=== PATIENT | female | born 1960 | race Caucasian/White ===

== ENCOUNTER 2019-08-10 13:10 | Inpatient (IN) ==
[2019-08-10] MEDS ORDERED: TYLENOL PO PRN (15:41)
[2019-08-10] MEDS ORDERED: ZOFRAN IV PRN (15:41)
[2019-08-10] MEDS ORDERED: NS 1,000 ML IV SCH (15:45)
[2019-08-10 15:56] LABS: HEMOGLOBIN 13.1 g/dL (12.0-16.0); MCH 28.3 PG (27-31); MCV 88.6 FL (81-99); MPV 9.9 FL (7.4-10.4); RBC 4.63 XMIL (4.2-5.4); RDW 14.7 % (11.5-14.5); WBC 9.71 X1000 (4.8-10.8)
[2019-08-10] MEDS ORDERED: NORCO-10 PO PRN (16:14)
[2019-08-10 16:22] LABS: ALBUMIN 3.9 g/dL (3.5-5.0); CALCIUM 8.5 mg/dL (8.8-10.2); POTASSIUM 4.2 mmol/L (3.5-5.1); TOTAL BILIRUBIN 0.2 mg/dL (0.20-1.00); TOTAL PROTEIN 6.8 g/dL (6.3-8.3)
[2019-08-10] MEDS ORDERED: MAGNESIUM SULFATE 4 GM/S.W.I. 4 GM/100 ML IVPB IV ONE (16:46)
[2019-08-10] MEDS ORDERED: CARDIZEM IV ONE ×2 (18:08→21:05)
--- NOTE | 2019-08-10 18:11 | HISTORY AND PHYSICAL ---
PRIMARY CARE PROVIDER: Dr. Gilson Corona. CHIEF COMPLAINT: Direct admit for low magnesium level with hand cramping that is already resolved. HISTORY OF PRESENT ILLNESS: Ms Sandra Meyers is a 58-year-old female with a medical history of hormone replacement therapy, COPD, depression, and GERD who states that she has been having some issues with cramping, twitching and painful hands. Presented to her primary care provider on Saturday, was initiated on magnesium supplementation and a magnesium level was drawn. She states that the cramping actually resolved the next day, Saturday, and she has been taking the supplementation since then but was called today to tell her that she had an extremely low magnesium level and she was to be admitted for replacement of the significantly low magnesium level. She thinks she was told it was as low as 0.06 or 0.6. Currently, labs have been ordered. The magnesium still is low but it is actually at 1.0. Her symptoms have resolved. So, will be able to give her some IV magnesium and to get that improved. Otherwise, she has no other complaints. PAST MEDICAL HISTORY: 1. Hormone replacement therapy. 2. COPD. 3. Depression. 4. GERD. 5. Bilateral lower extremity red, round, circular type, flat lesions that she has had for at least two years that cause her no complications or no issues. 6. Seasonal allergies. SURGICAL HISTORY: 1. Left breast biopsy. 2. Hysterectomy. 3. Left ankle surgery. 4. Cholecystectomy. 5. Skin biopsies. 6. EGD and colonoscopy five years ago. SOCIAL HISTORY: One pack per day smoker since the age of 17. Denies alcohol or illicit drug use. She is . FAMILY HISTORY: Mother: No medical conditions. Father: Diabetes. ALLERGIES: Sulfa causes a rash. HOME MEDICATIONS: 1. Ambien 10 mg p.o. nightly. 2. Lyrica 200 mg p.o. nightly. 3. Vilanterol one puff inhaled daily. 4. Claritin one tablet p.o. twice daily. 5. Cymbalta 60 mg p.o. daily. 6. Estradiol 2 mg p.o. daily. 7. Flonase two sprays nasally daily. 8. [place] t.i.d. p.r.n. 9. Potassium chloride 20 mEq p.o. twice daily. 10. Lasix 40 mg p.o. twice daily. 11. Magnesium oxide 400 mg p.o. daily. 12. Prilosec 40 mg p.o. twice daily. 13. Topamax 50 mg p.o. t.i.d. 14. Phenergan 20 to 50 mg p.o. every six hours p.r.n. REVIEW OF SYSTEMS: Fourteen point review of systems are complete and all were negative except for those mentioned in above HPI. PHYSICAL EXAMINATION: VITAL SIGNS: Temperature 98.1 degrees, heart rate 80, respiratory rate 20, blood pressure 151/89, O2 saturation 98% on room air, 5 feet 9 inches tall, 230 pounds, BMI is 35.2. GENERAL: Ms. Sandra Meyers is a 58-year-old female. She is in no acute distress. She is able answer questions appropriately. HEENT: Normocephalic. Pupils equal, round, reactive to light. Extraocular movements intact. Mucous membranes are moist. NECK: Trachea midline. CARDIOVASCULAR: S1, S2. Regular rate and rhythm. No rubs, gallops, murmurs. No lower extremity edema. +2 dorsalis and radial pulses. Negative JVD or carotid bruits. GASTROINTESTINAL: Soft, nontender, nondistended. Positive bowel sounds x4. EXTREMITIES: Moves all extremities equally. Full range of motion. NEUROLOGIC: Alert and oriented x3. Follows commands. Sensory is intact. SKIN: Warm, dry, intact, and there is multiple, not symmetrical circular type lesions, bilateral lower extremities. They are pink in color. LABORATORY DATA: White blood cells 9000, hemoglobin 13, hematocrit 41, platelet count 271,000. Sodium 144, potassium 4.2, BUN 10, creatinine is 1.0, glucose 105, calcium 8.5, magnesium 1.0, bilirubin 0.20, AST 12, ALT 9, albumin 3.9. TSH 2.32. IMAGING: None. EKG: None but EKG has been ordered. ASSESSMENT AND PLAN: 1. Symptomatic hypomagnesemia. Was experiencing some significant hand cramping, that resolved after she was started on some magnesium supplementation on Saturday. It resolved on Saturday, but she continues to still have a low magnesium level. Will be able to give her some intravenous magnesium supplementation. Maybe she can go home tomorrow. There are no obvious cardiac complications at this time. We are still pending an electrocardiogram here. She did have an electrocardiogram on Saturday, apparently that was okay, according to her. 2. Hormone replacement therapy. We can resume that. 3. Chronic obstructive pulmonary disease, no exacerbation. 4. Depression. Resume those medications. 5. Gastroesophageal reflux disease. Continue her proton pump inhibitor. 6. Deep venous thrombosis prophylaxis with sequential compression devices. Dictated by DEIRDRE Delacruz for Torey Solomon MD cc: DEIRDRE Delacruz MD
--- NOTE | 2019-08-10 19:50 | HISTORY AND PHYSICAL ---
ADDENDUM: Patient is a 58-year-old female who presented to the hospital from her primary care's office. They note that she had a low magnesium. She has been having cramping. Currently her magnesium level is 1. We are going to admit her to the hospital, replace her magnesium and place her on telemetry and will follow. cc: Torey Solomon MD
--- NOTE | 2019-08-10 20:23 | EKG Report ---
Test Performed on : 08/10/2019 6:03:28 PM Test Reason : low magnesium Blood Pressure : / mmHG Vent. Rate : 174 BPM Atrial Rate : 187 BPM P-R Int : 000 ms QRS Dur : 088 ms QT Int : 284 ms P-R-T Axes : 000 -27 145 degrees QTc Int : 483 ms Atrial fibrillation. with rapid ventricular response. Voltage criteria for left ventricular hypertrophy Marked ST abnormality, possible lateral subendocardial injury Abnormal ECG When compared with ECG of 18-SEP-2013 15:03, Atrial fibrillation. has replaced Sinus rhythm. Vent. rate has increased BY [address] now depressed in Lateral leads T wave inversion no longer evident in Inferior leads T wave inversion now evident in Lateral leads Confirmed by Devaughn Hu MD ([id number]) on 08/28/2019 7:39:04 AM
[2019-08-10] MEDS ORDERED: LYRICA PO SCH (21:00)
[2019-08-10] MEDS ORDERED: KLOR-CON PO SCH (21:00)
[2019-08-10] MEDS ORDERED: CLARITIN-D 12 HR PO SCH (21:00)
[2019-08-10] MEDS ORDERED: TOPAMAX PO SCH (21:00)
[2019-08-10] MEDS ORDERED: AMBIEN PO SCH (21:00)
[2019-08-10] MEDS ORDERED: LASIX PO SCH (21:00)
[2019-08-10] MEDS ORDERED: CARDIZEM 125 MG/D5W 125 MG/125 ML IVPB IV SCH (21:15)
[2019-08-10] MEDS: PRILOSEC PO SCH (21:23)
[2019-08-10 22:04] LABS: CALCIUM 8.8 mg/dL (8.8-10.2); CREATININE 1.1 mg/dL (0.5-0.9); MAGNESIUM 2.5 mg/dL (1.5-2.7); POTASSIUM 4.3 mmol/L (3.5-5.1)
[2019-08-11] MEDS: PRILOSEC PO SCH ×3 (05:43→20:46)
[2019-08-11 06:11] LABS: BASO# 0.01 X1000 (0.0-0.2); BASO% 0.1 % (0.0-0.8); EOS# 0.14 X1000 (0.0-0.7); EOS% 1.6 % (0.0-10.0); HEMATOCRIT 43.2 % (37.0-47.0); LYMPH# 2.12 X1000 (1.2-3.4); LYMPH% 24.6 % (20.5-51.1); MCH 28.7 PG (27-31); MCHC 32.4 g/dL (33-37); MCV 88.5 FL (81-99); MONO# 0.51 X1000 (0.11-0.59); MONO% 5.9 % (1.7-9.3); MPV 9.9 FL (7.4-10.4); NEUT# 5.84 X1000 (1.4-6.5); NEUT% 67.8 % (42.2-75.2); PLT 287 X1000 (130-400); RBC 4.88 XMIL (4.2-5.4); RDW 14.9 % (11.5-14.5); WBC 8.62 X1000 (4.8-10.8)
[2019-08-11 06:28] LABS: AGAP 15; ALB/GLOB RATIO 1.2; ALBUMIN 3.8 g/dL (3.5-5.0); ALKALINE PHOSPHATASE 126 U/L (32-104); BUN 14 mg/dL (8-22); CALCIUM 8.5 mg/dL (8.8-10.2); CHLORIDE 105 mmol/L (98-107); COSMO 282; CREATININE 0.9 mg/dL (0.5-0.9); ESTIMATED GFR > 60; GLUCOSE 96 mg/dL (70-104); GOT 9 U/L (10-30); GPT 8 U/L (10-36); MAGNESIUM 2.3 mg/dL (1.5-2.7); POTASSIUM 4.2 mmol/L (3.5-5.1); SODIUM 141 mmol/L (136-145); TCO2 21 mmol/L (25-35); TOTAL BILIRUBIN 0.37 mg/dL (0.20-1.00); TOTAL PROTEIN 6.9 g/dL (6.3-8.3)
--- NOTE | 2019-08-11 07:26 | EKG Report ---
Test Performed on : 08/11/2019 07:00:14 AM Test Reason : low magnesium Blood Pressure : / mmHG Vent. Rate : 074 BPM Atrial Rate : 074 BPM P-R Int : 148 ms QRS Dur : 084 ms QT Int : 392 ms P-R-T Axes : 037 -19 027 degrees QTc Int : 435 ms Normal sinus rhythm. Voltage criteria for left ventricular hypertrophy Abnormal ECG When compared with ECG of 10-AUG-2019 18:03, (Unconfirmed) Sinus rhythm. has replaced Atrial fibrillation. Vent. rate has decreased BY [address] no longer depressed in Anterolateral leads Confirmed by Gómez HIGH, P.J.M ([id number]) on 08/12/2019 7:55:46 PM
[2019-08-11] MEDS ORDERED: ANORO ELLIPTA 62.5-25 MCG INH INH SCH (07:30)
[2019-08-11] MEDS ORDERED: TYLENOL PO PRN (07:43)
[2019-08-11] MEDS ORDERED: ZOFRAN IV PRN (07:43)
[2019-08-11] MEDS: CYMBALTA PO SCH (08:31)
[2019-08-11] MEDS: KLOR-CON PO SCH ×2 (08:31→20:49)
[2019-08-11] MEDS: LASIX PO SCH ×2 (08:31→20:49)
[2019-08-11] MEDS: MAG-OX PO SCH (08:31)
[2019-08-11] MEDS: ESTRACE PO SCH (08:32)
[2019-08-11] MEDS: TOPAMAX PO SCH ×3 (08:32→20:46)
[2019-08-11] MEDS: CLARITIN-D 12 HR PO SCH ×2 (08:36→20:47)
[2019-08-11] MEDS ORDERED: FLONASE NAS SCH (09:00)
[2019-08-11] MEDS ORDERED: ESTRACE PO SCH (09:00)
[2019-08-11] MEDS ORDERED: CYMBALTA PO SCH (09:00)
[2019-08-11] MEDS ORDERED: MAG-OX PO SCH (09:00)
[2019-08-11] MEDS: FLONASE NAS SCH (10:21)
--- NOTE | 2019-08-11 12:56 | PROGRESS NOTE ---
DATE: 08/11/2019 SUBJECTIVE: This is a 58-year-old white female with medical history of hormone replacement therapy, COPD, depression, gastroesophageal reflux disease. States she has been having some issues with cramping, twitching, and painful hands. Presented to the primary care provider Saturday, initiated on magnesium supplementation. Magnesium level was drawn. She states that her cramping actually resolved the next day. Saturday, she had been taking this supplementation since then, but was called to tell her that it was extremely low, and was admitted for replacement of significantly low magnesium level. It was 0.6, I believe, currently. PAST MEDICAL HISTORY: Again reviewed. 1. Hormone replacement. 2. COPD. 3. Depression. 4. Gastroesophageal reflux disease. 5. Bilateral lower extremity round, circular-type, flat lesions that she has had for at least 2 years. It causes her no complication or issues. 6. Seasonal allergies. PAST SURGICAL HISTORY: 1. Left breast biopsy. 2. Hysterectomy. 3. Left ankle surgery. 4. Cholecystectomy. 5. Skin biopsies. 6. EGD and colonoscopy about 5 years ago. OBJECTIVE: General: She feels much better today. Vital Signs: Remains afebrile, temperature 98 degrees, pulse 83, respirations 17, blood pressure 153/86. HEENT: Pupils are equal and round. Lungs: Clear in all lung wilkinson. Cardiovascular: Regular rhythm and rate without murmur or S3. Abdomen: Soft. Skin: Warm and dry. Her magnesium is up to 2.3, so we will see how she does. She could possibly go home today. cc: Shin Cleaning MD
[2019-08-11] MEDS: NORCO-10 PO PRN (19:30)
[2019-08-11] MEDS ORDERED: LYRICA PO SCH ×2 (21:00)
[2019-08-11] MEDS ORDERED: AMBIEN PO SCH (21:00)
--- NOTE | 2019-08-11 22:02 | EKG Report ---
Test Performed on : 08/11/2019 9:22:09 PM Test Reason : hr 175 Blood Pressure : / mmHG Vent. Rate : 154 BPM Atrial Rate : 153 BPM P-R Int : 000 ms QRS Dur : 084 ms QT Int : 288 ms P-R-T Axes : 000 -26 141 degrees QTc Int : 461 ms Critical Test Result: High HR Atrial fibrillation. with rapid ventricular response. Voltage criteria for left ventricular hypertrophy ST & T wave abnormality, consider lateral ischemia Abnormal ECG When compared with ECG of 11-AUG-2019 07:00, (Unconfirmed) Atrial fibrillation. has replaced Sinus rhythm. Vent. rate has increased BY 80 BPM Non-specific change in ST segment in Lateral leads Confirmed by Gómez HIGH, P.J.M ([id number]) on 08/12/2019 7:57:35 PM
[2019-08-11] MEDS ORDERED: CARDIZEM IV ONE (22:16)
[2019-08-11] MEDS ORDERED: CARDIZEM 100 MG/NS 100 MG/100 ML IVPB IV SCH (22:30)
[2019-08-11 23:05] LABS: CALCIUM 8.6 mg/dL (8.8-10.2); CREATININE 1.3 mg/dL (0.5-0.9); POTASSIUM 4.1 mmol/L (3.5-5.1)
[2019-08-12] MEDS: PRILOSEC PO SCH (06:16)
[2019-08-12] MEDS ORDERED: ANORO ELLIPTA 62.5-25 MCG INH INH SCH (07:30)
[2019-08-12] MEDS: KLOR-CON PO SCH (08:26)
[2019-08-12] MEDS: NORCO-10 PO PRN (08:26)
[2019-08-12] MEDS: MAG-OX PO SCH (08:26)
[2019-08-12] MEDS: TOPAMAX PO SCH ×2 (08:27→15:20)
[2019-08-12] MEDS: CYMBALTA PO SCH (08:27)
[2019-08-12] MEDS: CLARITIN-D 12 HR PO SCH (08:27)
[2019-08-12] MEDS: LASIX PO SCH (08:27)
[2019-08-12] MEDS: ESTRACE PO SCH (08:28)
[2019-08-12] MEDS: FLONASE NAS SCH (08:28)
[2019-08-12 09:00] LABS: BASO# 0.03 X1000 (0.0-0.2); BASO% 0.4 % (0.0-0.8); EOS# 0.14 X1000 (0.0-0.7); EOS% 1.7 % (0.0-10.0); HEMATOCRIT 44.7 % (37.0-47.0); HEMOGLOBIN 14.2 g/dL (12.0-16.0); IMM GRAN# 0.04 X1000 (0.0-0.04); IMM GRAN% 0.5 % (0.0-0.5); LYMPH# 2.54 X1000 (1.2-3.4); MCH 28.2 PG (27-31); MCHC 31.8 g/dL (33-37); MCV 88.7 FL (81-99); MONO# 0.48 X1000 (0.11-0.59); MONO% 5.7 % (1.7-9.3); MPV 9.9 FL (7.4-10.4); NEUT# 5.23 X1000 (1.4-6.5); NEUT% 61.7 % (42.2-75.2); PLT 335 X1000 (130-400); RBC 5.04 XMIL (4.2-5.4); RDW 14.9 % (11.5-14.5); WBC 8.46 X1000 (4.8-10.8)
[2019-08-12 09:31] LABS: ALB/GLOB RATIO 1.6; CALCIUM 8.9 mg/dL (8.8-10.2); MAGNESIUM 2.1 mg/dL (1.5-2.7); POTASSIUM 4.4 mmol/L (3.5-5.1); TOTAL BILIRUBIN 0.24 mg/dL (0.20-1.00); TOTAL PROTEIN 6.5 g/dL (6.3-8.3)
--- NOTE | 2019-08-12 11:00 | EKG Report ---
Test Performed on : 08/12/2019 10:54:53 AM Test Reason : afib Blood Pressure : / mmHG Vent. Rate : 080 BPM Atrial Rate : 080 BPM P-R Int : 144 ms QRS Dur : 076 ms QT Int : 354 ms P-R-T Axes : 019 -21 013 degrees QTc Int : 408 ms Normal sinus rhythm. Voltage criteria for left ventricular hypertrophy Abnormal ECG When compared with ECG of 11-AUG-2019 21:22, (Unconfirmed) Sinus rhythm. has replaced Atrial fibrillation. Vent. rate has decreased BY 74 BPM Non-specific change in ST segment in Lateral leads T wave inversion no longer evident in Lateral leads Confirmed by Gómez HIGH, P.J.M ([id number]) on 08/12/2019 7:59:37 PM
--- NOTE | 2019-08-12 11:08 | Diag Imaging Result Doc PS360 ---
EXAM: CHEST-PORTABLE HISTORY: dyspnea TECHNIQUE: Single view COMPARISON: 08/04/2019 FINDINGS: Poor inspiratory effort. The heart is not enlarged. The vessels are not distended. There are no infiltrates. No effusion identified. IMPRESSION: Negative exam. Electronically signed by Kaushik Morin 08/12/2019 11:06 AM
[2019-08-12] MEDS ORDERED: ASPIRIN PO SCH (11:30)
[2019-08-12] MEDS ORDERED: CARDIZEM CD PO SCH (11:30)
[2019-08-12 13:08] VITALS: BP 104/72
--- NOTE | 2019-08-12 14:03 | PROGRESS NOTE ---
DATE: 08/12/2019 SUBJECTIVE: Ms. Meyers is feeling better. No further abdominal cramping. I think she has an echocardiogram due today. OBJECTIVE: Temperature 97.7 degrees, pulse 100, respirations 17, blood pressure 104/72. Pupils are equal and round. Lungs are clear in all lung wilkinson. Cardiovascular Examination: Regular rhythm and rate without murmur or S3. Urine output is 2000 mL. Chest x-ray, negative exam. Poor inspiratory effort. No sign of infiltrates. ASSESSMENT AND PLAN: She came in with hypomagnesemia and it appears that this is improving. Her magnesium is back up to 2.1 so I am hopeful we can let her go home today. She is eating. Bowels are moving good. Blood pressure appears well controlled. cc: Shin Cleaning MD
--- NOTE | 2019-08-12 14:47 | ECHO REPORT ---
ORDER DATE: 08/12/2019 INTERPRETING PHYSICIAN: Dr. Gregg Regalado. ECHOCARDIOGRAPHIC MEASUREMENTS: 1. Interventricular septum: 0.9 cm. 2. Left ventricular posterior wall: 0.9 cm. 3. Diastolic diameter: 3.9 cm. 4. Left atrium: 3.3 cm. 5. Aorta: 3.1 cm. SUMMARY OF THE 2-DIMENSIONAL IMAGIN. Aortic valve leaflets were trileaflet. 2. Tricuspid valve was normal. 3. Pulmonic valve was normal. 4. Mitral valve was normal. 5. Peak velocity across the aortic valve less than 2 m/sec. There is no aortic stenosis or regurgitation. There is mild mitral regurgitation. 6. Mild tricuspid regurgitation. Peak velocity across the tricuspid valve was 2.8 m/sec. 7. Pulmonary artery systolic pressure of 40 mmHg. 8. Normal left ventricular cavity size. Estimated ejection fraction of 60-65%. 9. There is no pericardial effusion or obvious intracardiac mass or thrombus seen. cc: Gregg Regalado MD
--- NOTE | 2019-08-12 18:25 | DISCHARGE SUMMARY ---
ADMISSION DATE: 08/10/2019 DISCHARGE DATE: 08/12/2019 PRIMARY CARE PROVIDER: Dr. Gilson Corona. HISTORY OF PRESENT ILLNESS: This is a 59-year-old female with medical history of hormone replacement therapy, COPD, depression, gastroesophageal reflux disease. She had been having some issues with cramping, and twitching especially in her hands, painful. She presented to the primary care provider on Saturday, was initiated on magnesium supplementation. Magnesium level was drawn and was actually pretty low, and when the lab came back, I think her magnesium was 0.6 and so she was told to come in to the emergency room. She was admitted and supplemented with magnesium. PAST MEDICAL HISTORY: 1. Hormone replacement. 2. COPD. 3. Depression. 4. Gastroesophageal reflux disease. 5. Bilateral lower extremity red round circular flat lesions that have been going on for least 2 years and I am not sure what these are, but apparently she has been worked up by her primary care physician. 6. Seasonal allergies. PAST SURGICAL HISTORY: 1. Left breast biopsy. 2. Hysterectomy. 3. Left ankle surgery. 4. Cholecystectomy. 5. Skin biopsies. 6. EGD and colonoscopy about 5 years ago. ADMISSION DIAGNOSIS: Symptomatic hypomagnesemia. Supplemented with magnesium and showed pretty good resolution of her symptomatology. Echocardiogram done on 08/12 and she has normal valves. Left ventricular function was normal with a normal ejection fraction. She was feeling much better and felt she could go home. DISCHARGE MEDICATIONS: She will be on aspirin 81 mg a day, Cardizem CD 120 mg a day, Cymbalta 60 mg a day, Estrace 2 mg p.o. daily, Flonase nasal spray 2 puffs each nostril daily, Lasix 40 mg p.o. daily, Birney 10s which she takes t.i.d. p.r.n., Claritin-D 12 hour release 1 b.i.d., Prilosec 20 mg b.i.d., Klor-Con 20 mEq b.i.d., Lyrica 200 mg at bedtime, Topamax 50 mg p.o. t.i.d.. She takes Anoro Ellipta 62.5-25 one puff daily and Ambien 10 mg a day. We will put her on some p.o. Mag oxide and she will just take a 400 mg once a day. cc: Shin Cleaning MD
[2019-08-12] MEDS ORDERED: PRILOSEC PO SCH (21:00)
--- NOTE | 2019-08-13 00:39 | CONSULTATION ---
DATE OF CONSULTATION: 08/12/2019 IMPRESSION: 1. Episode of atrial fibrillation, now spontaneously converted back to sinus rhythm. The patient without palpitations and unaware of atrial fibrillation. 2. Severe hypomagnesemia, probably related to medications. Patient has been on omeprazole 40 mg p.o. twice daily, probably impeding absorption of magnesium as well as Lasix 40 mg p.o. b.i.d. enhancing elimination of magnesium. 3. Chronic tendency for dependent edema, being treated with Lasix. Suspect this may be more likely related to venous insufficiency. 4. Gastroesophageal reflux disease. 5. Chronic obstructive pulmonary disease. 6. Chronic cigarette use. RECOMMENDATIONS: 1. [id number] score is 1; therefore, limited. Suggest aspirin p.o. daily given that she may have had occult episodes atrial fibrillation in the past. 2. Replete magnesium as you are doing. 3. Reduce proton pump inhibitor dose. Consideration might be given to use of Protonix plus evening use of Pepcid to try and lessen the tendency for poor absorption of magnesium. 4. Follow up echocardiography. 5. Judicious use of diuretic therapy. It would appear more likely that she has chronic venous insufficiency for which she has been taking Lasix twice daily. HISTORY: This is a 58-year-old white female with past history of COPD, gastroesophageal reflux disease, and dependent edema, was admitted with cramps in her hands and severe hypomagnesemia. While hospitalized on telemetry, she demonstrated transient atrial fibrillation with rapid ventricular rate. She was started on intravenous Cardizem, which brought rate under control. She has converted back to sinus rhythm. She was not aware of her arrhythmia. She denies any palpitations or chest pain. She has been on omeprazole 40 mg twice daily detention for gastroesophageal reflux. She also has been taking Lasix 40 mg p.o. twice daily to combat her tendency for dependently lower extremity edema. She denies any chest discomfort or shortness of breath. There is no prior history of atrial fibrillation. No palpitations. PAST MEDICAL HISTORY: 1. Chronic obstructive pulmonary disease. 2. Depression. 3. Gastroesophageal reflux disease. 4. Seasonal allergies. PAST SURGICAL HISTORY: 1. Left breast biopsy. 2. Hysterectomy. 3. Unspecified left ankle surgery. 4. Cholecystectomy. 5. Multiple skin biopsies. 6. Previous upper GI endoscopy and colonoscopy. ALLERGIES: She is allergic or intolerant to codeine and latex. MEDICATIONS PRIOR TO ADMISSION: As listed. SOCIAL HISTORY: She is . She previously worked as an animal control agent. She smokes 1 pack of cigarettes per day and has done so for approximately 40 years. She does not drink alcohol. FAMILY HISTORY: Negative for premature coronary disease. REVIEW OF SYSTEMS: Pulmonary: Noncontributory beyond history of present illness. Gastrointestinal: Noncontributory beyond history present illness. Constitutional: Noncontributory beyond history of present illness. Remainder of review of systems negative/noncontributory beyond history of present illness with 14 total systems reviewed. PHYSICAL EXAMINATION: General: This is a overweight, middle-aged female in no distress on room air. Vital signs: Blood pressure 128/75, heart rate 96, oxygen saturation 97% on room air. HEENT: Extraocular movements intact. Mucous membranes moist. Neck: Supple without jugular venous distention. There are no carotid bruits. Chest: Clear to auscultation bilaterally. Cardiac: Reveals a regular rate and rhythm without appreciable murmur or gallop. Abdomen: Soft. Bowel sounds are normal. Extremities: Without edema. Venous stasis changes are evident. Neurologic: Reveals her to be alert and fully oriented. Speech is fluent. She moves all 4 extremities equally well. Skin: Warm and dry. Psychiatric: Reveals mood to be appropriate. DATA: A 12-lead EKG dated 08/10/2019 at around 6 p.m. demonstrates atrial fibrillation with rapid ventricular rate and diffuse nonspecific ST and T-wave abnormality. Voltage criteria for left ventricular hypertrophy is demonstrated. Repeat ECG this morning demonstrates normal sinus rhythm and voltage criteria for left ventricular hypertrophy. LABORATORY DATA: Includes a white blood cell count 8.46, hematocrit 44.7, hemoglobin 14.2, platelet count 335,000. Sodium 138, potassium 4.4, chloride 104, carbon dioxide 20, BUN 18, creatinine 1.0. Glucose 108. Initial CPK 56 with a followup CPK at 36 and 32. Initial troponin less than 0.01 with followup troponin's of less than 0.01 and less than 0.01. TSH 2.32. Magnesium on admission 1.0, magnesium today 2.1 in. cc: Ilya Collins MD
[2019-08-13] MEDS ORDERED: LASIX PO SCH (09:00)
== END 2019-08-12 18:02 | disposition home or self-care (01) | DRG 641 ==
LOC: SUATTDRO 13:10 → P.DIRADM 13:10 → P.MEDSURG 13:51 → 2N 21:47
PROVIDERS: ATTEND Emergency Medicine

== ENCOUNTER 2019-08-17 07:25 | Observation (INO) ==
--- NOTE | 2019-08-17 08:08 | Diag Imaging Result Doc PS360 ---
EXAM: CHEST-1 VIEW 08/17/2019 HISTORY: chest pain TECHNIQUE: AP upright portable at 0801 COMMENT: The inspiration is slightly suboptimal. There is platelike atelectasis in the left lower lobe which was not evident on 08/12/2019. IMPRESSION: Left lower lobe atelectasis. Electronically signed by Domingo Lagunas 08/17/2019 8:05 AM
--- NOTE | 2019-08-17 08:28 | EKG Report ---
Test Performed on : 08/17/2019 07:31:02 AM Test Reason : cp Blood Pressure : / mmHG Vent. Rate : 089 BPM Atrial Rate : 089 BPM P-R Int : 152 ms QRS Dur : 082 ms QT Int : 346 ms P-R-T Axes : 035 -17 049 degrees QTc Int : 420 ms Normal sinus rhythm. Voltage criteria for left ventricular hypertrophy Possible Lateral infarct , age undetermined Abnormal ECG When compared with ECG of 12-AUG-2019 10:54, No significant change was found Unconfirmed Result
[2019-08-17 08:36] LABS: BASO# 0.02 X1000 (0.0-0.2); BASO% 0.2 % (0.0-0.8); EOS# 0.15 X1000 (0.0-0.7); EOS% 1.7 % (0.0-10.0); HEMATOCRIT 39.6 % (37.0-47.0); HEMOGLOBIN 12.9 g/dL (12.0-16.0); IMM GRAN# 0.04 X1000 (0.0-0.04); IMM GRAN% 0.4 % (0.0-0.5); LYMPH# 2.49 X1000 (1.2-3.4); LYMPH% 27.5 % (20.5-51.1); MCH 29.1 PG (27-31); MCHC 32.6 g/dL (33-37); MCV 89.2 FL (81-99); MONO% 6.6 % (1.7-9.3); MPV 9.9 FL (7.4-10.4); NEUT# 5.77 X1000 (1.4-6.5); NEUT% 63.6 % (42.2-75.2); PLT 297 X1000 (130-400); RBC 4.44 XMIL (4.2-5.4); RDW 14.6 % (11.5-14.5); WBC 9.07 X1000 (4.8-10.8)
[2019-08-17 09:00] LABS: ALB/GLOB RATIO 1.5; ALBUMIN 3.7 g/dL (3.5-5.0); CALCIUM 9.2 mg/dL (8.8-10.2); POTASSIUM 4.5 mmol/L (3.5-5.1); TOTAL BILIRUBIN 0.19 mg/dL (0.20-1.00); TOTAL PROTEIN 6.1 g/dL (6.3-8.3)
[2019-08-17 09:05] LABS: INR 0.98; PROTIME 13.1 Seconds (11.0-16.0); PTT 26.5 Seconds (22.3-41.8)
--- NOTE | 2019-08-17 12:06 | EKG Report ---
Test Performed on : 08/17/2019 11:31:17 AM Test Reason : cp Blood Pressure : / mmHG Vent. Rate : 077 BPM Atrial Rate : 077 BPM P-R Int : 154 ms QRS Dur : 082 ms QT Int : 394 ms P-R-T Axes : 021 -20 009 degrees QTc Int : 445 ms Normal sinus rhythm. Voltage criteria for left ventricular hypertrophy Abnormal ECG When compared with ECG of 17-AUG-2019 07:31, (Unconfirmed) No significant change was found Unconfirmed Result
--- NOTE | 2019-08-17 12:52 | PROVIDER DOCUMENTATION ---
This chart was entered by Nella Aparicio Scribe, acting as scribe for Storm Fox MD. HPI-Chest Pain - General Chief Complaint: Chest Pain Stated Complaint: WEAK, CP LAST NIGHT.... JUST RELEASED FROM [facility] Time Seen by Provider: 08/17/19 07:41 Source: patient Allergies/Adverse Reactions: Patient Allergies Allergy/AdvReac Type Severity Reaction Status Date / Time codeine Allergy NAUSEA/VOMI Verified 08/17/19 07:58 TING latex Allergy RASH Verified 08/17/19 07:58 Home Medications: Home Medication List Medication Instructions Recorded Confirmed Last Taken Type Duloxetine [Cymbalta] 60 mg PO QAM 07/08/12 08/17/19 08/17/19 History Furosemide [Lasix] 40 mg PO BID 07/08/12 08/17/19 08/17/19 History Pregabalin [Lyrica] 200 mg PO QHS 07/08/12 08/17/19 08/17/19 History Hydrocodone Bit/Acetaminophen 1 each PO TID 01/08/13 08/17/19 08/17/19 History [Hydrocodon-Acetaminophn 10-500] Potassium Chloride E.r. [Klor-Con] 20 meq PO BID 09/30/15 08/17/19 08/17/19 History Estradiol [Estrace] 1 mg PO DAILY 09/03/17 08/17/19 08/17/19 History Fluticasone 50 Mcg Nasal [place] 2 spray INH DAILY 08/10/19 08/17/19 Unknown History [Flonase] Loratadine/Pse E.r. 12 Hr 1 tab PO BID 08/10/19 08/17/19 08/10/19 History [Claritin-D 12 Hr] Umeclidinium/Vilanterol [Anoro 1 puff INH DAILY 08/10/19 08/17/19 08/17/19 History Ellipta 62.5-25 Mcg INH] Aspirin 81 mg PO DAILY chewtab 08/12/19 08/17/19 08/17/19 Rx Amitriptyline HCl 1 tab PO QHS 08/17/19 08/17/19 08/16/19 History Atorvastatin Calcium 1 tab PO DAILY 08/17/19 08/17/19 08/17/19 History Diltiazem C.d. [Cardizem Cd] 1 tab PO DAILY 08/17/19 08/17/19 08/17/19 History Ergocalciferol (Vitamin D2) 1 cap PO DIRECTED 08/17/19 08/17/19 Unknown Hist ory [Vitamin D2] Guaifenesin/Phenylephrine HCl 1 tab PO BID PRN 08/17/19 08/17/19 Unknown History [Deconex Ir 385-10 mg Tablet] Hydroxyzine Pamoate 1 tab PO DAILY 08/17/19 08/17/19 08/17/19 History Magnesium Oxide [Mag-Oxide] 400 mg PO TID 08/17/19 08/17/19 08/17/19 History Omeprazole 1 tab PO DAILY 08/17/19 08/17/19 08/17/19 History - History of Present Illness-CP Nature of Presenting Problem: Patient is a 59 year old female who presents with left side chest pain. States chest pain started last night but has resolved. History of low magnesium. Location: reports: other (left side) Chest Pain Radiation: reports: no radiation Quality of Pain: reports: cramping Severity in ED: mild Onset/Duration: last night Timing: gone now Context/Activities at Onset: reports: light activity Associated Symptoms: reports: denies symptoms Similar Symptoms Previously?: Yes Recently Seen Here or By Another Healthcare Provider: Yes Review of Systems - Adult - REVIEW OF SYSTEMS - ADULT Constitutional: reports: no symptoms reported Eyes: reports: no symptoms reported Ears, Nose, Mouth & Throat: reports: no symptoms reported Cardiovascular: reports: no symptoms reported. denies: chest pain, irregular heart rate, palpitations Respiratory: reports: no symptoms reported Gastrointestinal: reports: no symptoms reported Genitourinary: reports: no symptoms reported Musculoskeletal: reports: no symptoms reported Integumentary: reports: no symptoms reported Neurological: reports: no symptoms reported Psychiatric: reports: no symptoms reported Endocrine: reports: no symptoms reported Hematologic/Lymphatic: reports: no symptoms reported Allergic/Immunologic: reports: no symptoms reported All Other Systems: Reviewed and Negative Past History - Adult - PAST MEDICAL HISTORY-ADULT Review of Records: reports: Old Records Reviewed, Nursing Assessment Review, Medications Reviewed, Social history reviewed & non-contributory. Major Childhood Illnesses: reports: denies history Cardiovascular: reports: A-Fib, hyperlipidemia Respiratory: reports: COPD Gastrointestinal: reports: denies history Obstetrical/Gynecological: reports: denies history Genitourinary: reports: denies history Musculoskeletal: reports: denies history Neurological: reports: headaches/migraines Psychiatric: reports: depression Endocrine/Immune: reports: denies history Other Conditions: reports: denies history - PRIOR SURGERIES/PROCEDURES Surgical/Procedure History: reports: cholecystectomy, hysterectomy, orthopedic (extremity) - IMMUNIZATION STATUS Childhood Immunizations: See Nurse Assessment Flu Vaccine: See Nurse Assessment - FAMILY HISTORY Family History: reviewed, not pertinent - SOCIAL HISTORY Smoking: cigarettes, greater than 1 pack/day Provider spent 3-5 mins advising pt. on dangers of tobacco.: Discussed manners to quit use, and f/u contacts for add'l counseling. Substance Use: alcohol Alcohol Use Frequency: rarely Physical Exam-General - PHYSICAL EXAM-ADULT Initial Vital Signs Reviewed: Yes - CONSTITUTIONAL General Appearance: alert, no apparent distress, anxious. negative: lethargic - HEAD, EARS, NOSE, MOUTH & THROAT HENMT: normocephalic/atraumatic, moist mucous membranes. negative: angioedema - RESPIRATORY Respiratory: chest non-tender, lungs clear, normal breath sounds. negative: crackles, stridor - CARDIOVASCULAR Cardiovascular: normal peripheral pulses, regular rate, rhythm. negative: tachycardia - GASTROINTESTINAL (ABDOMEN) Abdominal Exam: normal bowel sounds, non tender, soft. negative: guarding, rebound - MUSCULOSKELETAL Extremity: normal inspection. negative: deformity, erythema - SKIN Integumentary: normal color, normal turgor, warm/dry. negative: diaphoresis, ecchymosis, jaundice - NEUROLOGIC Neurologic: grossly normal. negative: aphasia, facial droop - PSYCHIATRIC Psych/Mental Status: oriented x 3, anxious. negative: tearful - HEART Score HEART Score: History: Slightly Suspicious HEART Score: ECG: Non-Specific Repolarization Disturbance/LBBB/PM HEART Score: Age: 45-65 Years HEART Score: Risk Factors for Atherosclerotic Disease: 1 or 2 Risk Factors HEART Score: Troponin: < or = Normal Limit Total HEART Score:: 3 Progress - PLAN OF CARE/RESULTS Progress/Plan/Lab Results: Vital Signs - 8 hr 08/17/19 07:29 08/17/19 07:37 08/17/19 07:40 Temperature 98.7 F Pulse Rate 89 82 Respiratory Rate 20 14 Blood Pressure 113/68 136/60 O2 Sat by Pulse Oximetry 93 L 95 97 08/17/19 08:00 08/17/19 08:16 08/17/19 08:31 Temperature Pulse Rate 85 79 79 Respiratory Rate 16 13 18 Blood Pressure 123/71 118/70 O2 Sat by Pulse Oximetry 97 94 L 93 L 08/17/19 09:00 08/17/19 09:01 08/17/19 09:32 Temperature Pulse Rate 78 78 78 Respiratory Rate 19 16 19 Blood Pressure 109/63 142/93 O2 Sat by Pulse Oximetry 93 L 91 L 96 08/17/19 10:00 08/17/19 10:01 Temperature Pulse Rate 73 73 Respiratory Rate 19 13 Blood Pressure 140/72 O2 Sat by Pulse Oximetry 94 L 95 Laboratory Results - last 24 hr 08/17/19 08/17/19 08/17/19 08:17 08:17 08:17 WBC 9.07 RBC 4.44 Hgb 12.9 Hct 39.6 MCV 89.2 MCH 29.1 MCHC 32.6 L RDW Std Deviation 14.6 H Plt Count 297 MPV 9.9 Immature Gran % (Auto) 0.4 Neut % (Auto) 63.6 Lymph % (Auto) 27.5 [place] % (Auto) 6.6 Eos % (Auto) 1.7 Baso % (Auto) 0.2 Immature Gran # (Auto) 0.04 Neut # (Auto) 5.77 Lymph # (Auto) 2.49 [place] # (Auto) 0.60 H Eos # (Auto) 0.15 Baso # (Auto) 0.02 PT INR PTT (Actin FS) Sodium 139 Potassium 4.5 Chloride 104 Carbon Dioxide 22 L Anion Gap 13 BUN 18 Creatinine 1.0 H Estimated GFR/1.73 m2 57 BUN/Creatinine Ratio 18 Glucose 95 Calculated Osmolality 279 Calcium 9.2 Magnesium 2.0 Total Bilirubin 0.19 L AST 11 ALT 8 L Alkaline Phosphatase 114 H Troponin T Msc-L-Coekodzxmxv Pept 30 Total Protein 6.1 L Albumin 3.7 Globulin 2.4 Albumin/Globulin Ratio 1.5 08/17/19 08/17/19 08/17/19 08:17 08:17 11:38 WBC RBC Hgb Hct MCV MCH MCHC RDW Std Deviation Plt Count MPV Immature Gran % (Auto) Neut % (Auto) Lymph % (Auto) [place] % (Auto) Eos % (Auto) Baso % (Auto) Immature Gran # (Auto) Neut # (Auto) Lymph # (Auto) [place] # (Auto) Eos # (Auto) Baso # (Auto) PT 13.1 INR 0.98 PTT (Actin FS) 26.5 Sodium Potassium Chloride Carbon Dioxide Anion Gap BUN Creatinine Estimated GFR/1.73 m2 BUN/Creatinine Ratio Glucose Calculated Osmolality Calcium Magnesium Total Bilirubin AST ALT Alkaline Phosphatase Troponin T < 0.010 < 0.010 Ikw-B-Yxtyrtvbrom Pept Total Protein Albumin Globulin Albumin/Globulin Ratio Orders Category Date Time Status CHEST-1 VIEW [RAD] Stat Exams 08/17/19 07:42 Completed CBC WITH ELECTRONIC DIFF [HEME] Stat Lab 08/17/19 08:17 Completed COMPREHENSIVE METABOLIC PANEL [CHEM] Stat Lab 08/17/19 08:17 Completed MAGNESIUM [CHEM] Stat Lab 08/17/19 08:17 Completed PRO B-NATRIURETIC PEPTIDE Stat Lab 08/17/19 08:17 Completed PT [PROTIME WITH INR] [COAG] Stat Lab 08/17/19 08:17 Completed PTT [COAG] Stat Lab 08/17/19 08:17 Completed TROPONIN T Stat Lab 08/17/19 08:17 Completed TROPONIN T Stat Lab 08/17/19 11:38 Completed EKG [EKG] Stat Ther 08/17/19 07:42 Draft EKG [EKG] Stat Ther 08/17/19 11:02 Draft At recheck pt noted that she is still having Lt sided cp under her lt breast radiating to Lt arm. Pt agrees to be admitted and hospitalist paged. Result Diagrams: 08/17/19 08:17 08/17/19 08:17 - EKG 1 Time of EKG reading by physician:: 07:31 EKG Read and Signed by:: Storm Fox EKG Interpretation (*Must complete 3 of following elements*): Abnormal Rate: 89 Rhythm: normal sinus rhythm [place]: normal QRS: LVH (voltage criteria) [place] Interval: normal Comments: possible lateral infarct, age undetermined 2 Time of EKG reading by physician:: 11:31 EKG Read and Signed by:: Storm Fox EKG Interpretation (*Must complete 3 of following elements*): Abnormal Rate: 77 Rhythm: normal sinus rhythm [place]: normal QRS: LVH (voltage criteria) [place] Interval: normal Comments: abnormal ECG - XRAY 1 XRAY Study: Chest Impression: See EMR Report ( EXAM: CHEST-1 VIEW 08/17/2019 HISTORY: chest p ain TECHNIQUE: AP upright portable at 0801 COMMENT: The inspiration is slightly suboptimal. There is platelike atelectasis in the left lower lobe which was not evident on 08/12/2019. IMPRESSION: Left lower lobe atelectasis. Electronically signed by Domingo Lagunas 08/17/2019 8:05 AM 08/17/19 0805 Interpreting Physician: Domingo Lagunas MD Dictated Date/Time: 08/17/19 0804 cc: Storm Fox MD; Gilson Corona MD) - CONSULTS/PCP/HOSPITALIST Notification #1 *Consult/PCP/Hospitalist*: Dr. Monique Time Discussed: 10:41 Reason/Comments: Dr. Fox consulted with Dr. Monique about patient. #2 Consult: DEIRDRE Styles for Hospitalist Time Discussed: 12:48 Reason/Comments: Dr. Fox consulted with Stephani about patient. Consult Disposition: Will see in ED, Admit Departure - Departure Date of Disposition Decision: 08/17/19 Time of Disposition Decision: 12:48 DIAGNOSIS: Chest pain, Renal insufficiency Disposition: ADMITTED INPATIENT 09 Certified Medical Emergency: Emergent Condition: Fair Referrals and Follow-Ups: Gilson Corona MD [Primary Care Provider] - - Critical Care Note This patient required my direct & personal management of CC.: No Attestation - Physician/ KARISSA Attestation Patient care was provided by Advanced Practice Provider:: No The physician spent face to face time with patient:: Yes Advanced Practice Provider documentation review:: Supervising physician onsite and consulted in the evaluation and care of this patient. The physician did have a face to face encounter with the patient. This chart was documented by the indicated scribe, (Nella Aparicio Scribe) and accurately reflects the services I performed and decisions made by me, Storm Fox MD, as attested by the provider's signature.
[2019-08-17 15:07] LABS: IRON SATURATION 16 %; TIBC 340 ug/dL; TOTAL IRON 54 ug/dL (49-151); UNBOUND IRON 286 ug/dL (112-346)
[2019-08-17] MEDS: MAG-OX PO SCH (18:46)
[2019-08-17] MEDS: LOVENOX SUBQ SCH (18:46)
[2019-08-17] MEDS: CYANOCOBALAMIN IM SCH (18:47)
[2019-08-17] MEDS ORDERED: VENOFER 200 MG in NS 100 ML IV ONE (19:00)
--- NOTE | 2019-08-17 20:22 | HISTORY AND PHYSICAL ---
CHIEF COMPLAINT: Chest pain, left arm pain. HPI: This is a 59-year-old female with a history of COPD, hyperlipidemia and hypomagnesemia, she was hospitalized from 08/10 to 08/16 for hypomagnesemia , during the hospitalization she was found to have an episode of atrial fibrillation that spontaneously converted to sinus rhythm. She was evaluated by Cardiology, with recommendations of a daily aspirin. At this time echocardiogram revealed an EF of 60 to 65 percent. She was in her normal state of health until 4 weeks ago, she developed dyspnea on exertion. requiring frequent rest periods and slowing down performing activities of daily living. She denied a cough or any fevers or chills. She states that she was awakened last night with chest pressure feeling like somebody was sitting on her chest. It was just above her left breast to her clavicle. It extended to her axillary area and down the underside of her arm into her hand. Chest pain resolved spontaneously but she continues to have intermittent left axillary and left arm pain. She does report over the last 3 to 4 weeks that she has had claudication stating that when she walks she feels her calves tightening up. She states it feels like the sensation changes in her feet she feels like she is having to stop to walk. With rest and elevation this does subside. She denied any coldness or discoloration of her feet or legs. PAST MEDICAL HISTORY: 1. Atrial fibrillation. 2. Chronic obstructive pulmonary disease. 3. Hyperlipidemia. 4. Peripheral neuropathy. 5. Environmental allergies . PAST SURGICAL HISTORY: Left breast biopsy, hysterectomy, left ankle surgery, cholecystectomy, skin biopsies, EGD and colonoscopy 5 years ago. SOCIAL HISTORY: She smokes about a pack a day she has since she was 17. She denies alcohol or illicit drug use. She is and lives with her . ALLERGIES: Sulfa allergies latex which causes a rash and codeine which causes nausea and vomiting. HOME MEDICATIONS: A list will be obtained by the nursing staff and once verified will review and restart as appropriate. REVIEW OF SYSTEMS: Discussed with patient with pertinent positives stated in the HPI. She denied any syncope or dizziness any palpitations a productive cough, fever, chills, night sweats, PND, orthopnea, any nausea, vomiting, diarrhea, constipation, black or bloody vomitus or stools, any hematuria, dysuria, frequency, urgency. PHYSICAL EXAMINATION: GENERAL: This is a 59-year-old female who is lying in the stretcher in the emergency room in no distress. VITAL SIGNS: Blood pressure is 136/90 with a heart rate of 70, respirations are 18, temperature is 97.5 degrees with room air saturations 95 to 99 percent. HEENT: Head is normocephalic, atraumatic. Mucous membranes are moist. NECK: Supple with trachea midline. CARDIOVASCULAR: Regular rate and rhythm. S1 and S2 appreciated. She has no lower extremity edema. She has bilateral pretibial edema with peripheral pulses palpable x4 extremities. Calves are nontender to palpation. PULMONARY: Breath sounds are clear. No increased work of breathing noted. Chest rises and falls symmetric respiration. GASTROINTESTINAL: Abdomen soft, nontender, nondistended. Bowel sounds in all 4 quadrants. NEUROLOGIC: She is alert, oriented x3. SKIN: Warm and dry. LABS: WBC is 9 with hemoglobin 12.9, hematocrit 39.6, and platelets of 297,000. Sodium 139, potassium 4.5, BUN 18, creatinine 1, glucose 95. Troponin is negative on multiple occasions. Vitamin B12 is 197 with folate 10.2. Chest x-ray revealed left lower lobe atelectasis. ASSESSMENT AND PLAN: 1. Chest pain, left arm pain. 2. Left lower lobe atelectasis. 3. Chronic kidney disease with a baseline creatinine of 1.1. 4. Recent lone episode of atrial fibrillation now is in sinus rhythm. 5. Chronic obstructive pulmonary disease. 6. Tobacco use and abuse. 7. Pain in calves with walking PLAN: The patient will be admitted to the medical floor placed on telemetry for close monitoring. trend cardiac profile and troponin. NPO after midnight and if all troponins are negative then a Lexiscan will be performed tomorrow. healthy heart diet. CBC, BMP and magnesium in the morning. identify her home medications and continue as appropriate. bilateral lower extremity arterial studies. DVT prophylaxis will use Lovenox and GI prophylaxis Prilosec. Plan was discussed with Dr. Miller. Further treatments pending hospital course. Dictated by DEIRDRE Brownlee for Kash Miller MD cc: DEIRDRE Brownlee MD [facility]
[2019-08-17] MEDS: LYRICA PO SCH (20:23)
[2019-08-17] MEDS: KLOR-CON PO SCH (20:23)
[2019-08-17] MEDS ORDERED: LASIX PO SCH (21:00)
--- NOTE | 2019-08-17 21:37 | HISTORY AND PHYSICAL ---
ADDENDUM: Ms. Meyers got admitted because of atypical chest pain which, according to her, she describes it as something heavy sitting on her chest of an acute onset that radiated to the left arm. Ms Meyers was also admitted to the hospital and was just discharged about 5 days ago because of severe hypomagnesemia. Of note, Ms. Meyers is on fairly [id number] amount of diuretics because of lower extremity swelling, which seems to be noncardiac related. I have seen and examined Ms. Meyers today. I agree with the History and Physical that has been dictated by the nurse practitioner in the chart. The plan reflects my discussions with her. Briefly, her vitals now are blood pressure 129/79, pulse of 82, respirations 16, temperature is 97.4 degrees. Physical exam for the most part is unremarkable. I have reviewed the labs as well. She does have a normocytic anemia. There is underlying iron deficiency with a ferritin of 46. Pro B is normal. The patient's magnesium is normalized. ASSESSMENT: 1. Atypical chest pain, to rule out any acute coronary syndrome. So far, troponins have been unremarkable. Patient's electrocardiogram also showed normal sinus rhythm. No ST-segment or T-wave abnormalities for now. 2. Vitamin B12 deficiency and iron deficiency. I think this is all related to the chronic proton pump inhibitor therapy. I have advised Ms. Meyers to come off on this since she does not seem to have any documented pathology that needs this long-term chronic proton pump inhibitor therapy. 3. History of chronic obstructive pulmonary disease. 4. Gastroesophageal reflux disease. Please refer to the details of the History and Physical in the chart. cc: Kash Miller MD
[2019-08-18] MEDS ORDERED: PRILOSEC PO SCH (07:00)
--- NOTE | 2019-08-18 07:23 | EKG Report ---
Test Performed on : 08/18/2019 07:02:07 AM Test Reason : chest pain Blood Pressure : / mmHG Vent. Rate : 070 BPM Atrial Rate : 070 BPM P-R Int : 156 ms QRS Dur : 088 ms QT Int : 406 ms P-R-T Axes : 009 -24 015 degrees QTc Int : 438 ms Normal sinus rhythm. Voltage criteria for left ventricular hypertrophy Cannot rule out Septal infarct , age undetermined Abnormal ECG When compared with ECG of 17-AUG-2019 11:31, (Unconfirmed) Minimal criteria for Septal infarct are now present Confirmed by Gómez HIGH, P.J.M ([id number]) on 08/19/2019 3:08:59 PM
[2019-08-18] MEDS ORDERED: ANORO ELLIPTA 62.5-25 MCG INH INH SCH (07:30)
[2019-08-18 07:49] LABS: BASO# 0.02 X1000 (0.0-0.2); BASO% 0.2 % (0.0-0.8); EOS# 0.19 X1000 (0.0-0.7); EOS% 2.2 % (0.0-10.0); HEMATOCRIT 42.6 % (37.0-47.0); HEMOGLOBIN 13.5 g/dL (12.0-16.0); IMM GRAN# 0.03 X1000 (0.0-0.04); IMM GRAN% 0.3 % (0.0-0.5); LYMPH# 2.65 X1000 (1.2-3.4); LYMPH% 30.2 % (20.5-51.1); MCH 28.4 PG (27-31); MCHC 31.7 g/dL (33-37); MCV 89.5 FL (81-99); MONO# 0.63 X1000 (0.11-0.59); MONO% 7.2 % (1.7-9.3); NEUT# 5.25 X1000 (1.4-6.5); NEUT% 59.9 % (42.2-75.2); PLT 294 X1000 (130-400); RBC 4.76 XMIL (4.2-5.4); RDW 14.7 % (11.5-14.5); WBC 8.77 X1000 (4.8-10.8)
[2019-08-18 08:09] LABS: AGAP 12; BUN 16 mg/dL (8-22); CHLORIDE 108 mmol/L (98-107); COSMO 285; CREATININE 0.9 mg/dL (0.5-0.9); ESTIMATED GFR > 60; GLUCOSE 85 mg/dL (70-104); MAGNESIUM 2.4 mg/dL (1.5-2.7); POTASSIUM 4.4 mmol/L (3.5-5.1); SODIUM 143 mmol/L (136-145); TCO2 23 mmol/L (25-35)
[2019-08-18] MEDS ORDERED: LEXISCAN ONE (09:04)
[2019-08-18] MEDS: KLOR-CON PO SCH ×2 (11:12→22:25)
[2019-08-18] MEDS: CARDIZEM CD PO SCH (11:12)
[2019-08-18] MEDS: MAG-OX PO SCH ×3 (11:12→22:25)
[2019-08-18] MEDS: ASPIRIN PO SCH (11:13)
[2019-08-18] MEDS: CYMBALTA PO SCH (11:13)
[2019-08-18] MEDS: LOVENOX SUBQ SCH (15:27)
[2019-08-18] MEDS: ZOFRAN IV PRN ×2 (15:27→23:42)
--- NOTE | 2019-08-18 15:49 | Diag Imaging Result Document ---
PROCEDURE NAME: MYOCARDIAL PERF SCAN, STR/REST - 08/18/2019 STUDY: Rest/stress Lexiscan myocardial perfusion study. INDICATION: Patient with chest pain and dyspnea. Left arm pain. DESCRIPTION: The patient came into the nuclear laboratory, received resting injection of technetium 99 sestamibi 15.5 mCi. Multiple tomographic views of the cardiac structures were obtained at rest. Subsequently, the patient underwent infusion of Lexiscan 0.4 mg. At peak infusion, injected with technetium 99 sestamibi 44.9 mCi. Multiple tomographic views of the cardiac structures were obtained following completion of the exercise protocol. SUMMARY OF THE ELECTROCARDIOGRAPHIC PORTION OF THE STUDY: Resting electrocardiogram shows sinus rhythm with PVCs, rate 67 beats per minute. There is a nonspecific ST-T abnormality noted in precordial leads. During the protocol, the heart rate increased to 94 beats per minute. Blood pressure went down to 120/58. The patient reported mild dyspnea. However, there was no chest pain. Following completion of the test, the heart rate and blood pressure returned back to their baseline. In summary, electrocardiographic response to infusion of Lexiscan is unremarkable. SUMMARY OF THE MYOCARDIAL PERFUSION PORTION OF THE STUDY: Poststress tomographic views of the left ventricle showed essentially normal myocardial perfusion. There is no convincing evidence of any postexercise defect. The rest images showed the same. There is no evidence of scar. Polar plots showed there is no evidence of neither inducible ischemia nor myocardial scar. Gated SPECT shows normal left ventricular systolic function with ejection fraction of 78% with normal ventricular volumes. No wall motion abnormality. The lung/heart ratio is probably at the upper limits of normal. TID is 1.04. SUMMARY: This study shows: 1. Normal electrocardiographic response to infusion of Lexiscan. 2. Normal poststress myocardial perfusion scan. There is no scintigraphic evidence of pharmacologic induced myocardial ischemia. 3. Normal left ventricular systolic function, ejection fraction is 78% with normal ventricular volumes, no wall motion abnormality. This study represents a low risk for ischemic events. cc: MD Wendy Morales CRNP
--- NOTE | 2019-08-18 19:19 | VASCULAR LAB ---
PROCEDURE NAME: Arterial Bilateral Legs - 08/17/2019 STUDY PERFORMED: Bilateral lower extremity arterial study. INDICATIONS: Claudication in a smoker, a 59-year-old female. REFERRING PHYSICIAN: DEIRDRE Brownlee. FINDINGS: Systolic brachial blood pressure on the right is 141 mmHg, on the left 134 mmHg. Right high thigh 194 mmHg, left high thigh 203 mmHg. Right low thigh 192 mmHg, left low thigh 162 mmHg. Right calf 160 mmHg, left calf 168 mmHg. Right ankle 165 mmHg, left ankle is 155 mmHg. There is pulsatile flow in both feet and both great toes at rest. The right ankle-brachial index is 1.17. The left ankle-brachial index is 1.10. INTERPRETATION: At rest, there is normal arterial flow to the feet bilaterally. cc: MD Wendy Guzman CRNP
[2019-08-18] MEDS ORDERED: LIPITOR PO SCH (21:00)
--- NOTE | 2019-08-18 21:04 | PROGRESS NOTE ---
DATE: 08/18/2019 SUBJECTIVE: I went early on to see Ms. Meyers early this morning, but she had gone for a stress test. This afternoon I went back. She was back from stress test. We are still pending official report. She refers to be doing a lot better. No chest pain. No shortness of breath and no cramps. OBJECTIVE: Vital signs: Blood pressure was 136/80, pulse of 93, respiration was 18, temperature 98.0 degrees. The patient is saturating 98% on room air. General: Ms. Meyers is a 59-year-old female. She is in bed no distress. HEENT: Mucosa is pink and moist. Anicteric. Acyanotic. Neck: Supple. Chest: Clear to auscultation. No crepitations. No rhonchi. Cardiovascular: Regular rate and rhythm. No murmurs. Abdomen: Soft. Extremities: No pedal edema. CARDIAC EXERCISE PHYSIOLOGIST: The patient was awake, alert, and oriented. There is no focal neurological deficit. Extremities: No pedal edema. LABORATORY DATA: CBC and chemistry are all within normal range. The patient's magnesium and potassium have all been normalized. Troponins have been trended 4 times; all negative. ASSESSMENT: 1. Atypical chest pain with unremarkable troponins and electrocardiogram. The patient was had gone for stress test this morning. We are pending the report. 2. Vitamin B12 and iron deficiency. We will continue to replace. 3. History of chronic obstructive pulmonary disease. 4. Gastroesophageal reflux disease, controlled. Chronic therapy on proton pump inhibitor. The patient has been advised to cease the usage of this since it seems to be interfering with her magnesium and put the potassium. By the time of the dictation, her perfusion scan has been read camila normal. No scintigraphic evidence of induced myocardial ischemia. The patient's ejection fraction was 78. I went back to discuss the result of the stress test, but it is too late for her to be discharged, so we will get her discharge in the morning. cc: MD VERNON Quintana
[2019-08-18] MEDS: LYRICA PO SCH (22:24)
[2019-08-18] MEDS: CYANOCOBALAMIN IM SCH (22:25)
[2019-08-19 07:47] VITALS: BP 109/53
[2019-08-19] MEDS: KLOR-CON PO SCH (08:50)
[2019-08-19] MEDS: MAG-OX PO SCH (08:50)
[2019-08-19] MEDS: CARDIZEM CD PO SCH (08:50)
[2019-08-19] MEDS: CYMBALTA PO SCH (08:50)
[2019-08-19] MEDS: ASPIRIN PO SCH (08:50)
--- NOTE | 2019-08-20 06:53 | DISCHARGE SUMMARY ---
ADMISSION DATE: 08/17/2019 DISCHARGE DATE: 08/19/2019 DISPOSITION: Home. FOLLOWUP: Followup will be with Dr. Gilson Corona. CONSULTATIONS DURING THIS ADMISSION: None. INVASIVE PROCEDURES DONE DURING THIS ADMISSION: None. IMAGING STUDIES OF SIGNIFICANCE: 1. Chest x-ray did show left lower lobe atelectasis. 2. Doppler ultrasound of the lower extremities showed normal flow in both legs. 3. Myocardial perfusion scan showed no evidence of pharmacological-induced myocardial ischemia. ADMISSION DIAGNOSES: 1. Chest pain. 2. Chronic kidney disease. 3. History of chronic obstructive pulmonary disease. 4. Tobacco use and abuse. DISCHARGE DIAGNOSES: 1. Atypical chest pain with unremarkable troponins, electrocardiogram, and normal stress test, most likely noncardiac. 2. Vitamin B12 and iron deficiency. 3. History of chronic obstructive pulmonary disease, currently not in exacerbation. 4. Gastroesophageal reflux disease. 5. Chronic proton pump inhibitor therapy. 6. History of hypomagnesemia and hypokalemia, most likely due to diuretic and proton pump inhibitor use. The patient has been advised to stop using. DISCHARGE MEDICATIONS: 1. Pregabalin 200 mg p.o. at bedtime. 2. Duloxetine 60 mg p.o. every a.m. 3. B[place]mer 10 three times per day. 4. Estradiol. 5. Fluconex. 6. Anoro Ellipta 1 puff daily. 7. Aspirin 81 mg p.o. daily. 8. Amitriptyline 100 mg at bedtime. 9. Diltiazem 120 mg daily. 10. Vitamin D 1 tablet daily. 11. Magnesium 400 three times per day. 12. Famotidine 20 mg b.i.d. 13. Zofran 4 mg p.o. 3 times per day p.r.n. PRESENTING COMPLAINT: Chest pain, left arm pain. HISTORY OF PRESENTING COMPLAINT: Ms. Meyers is a 59-year-old female who has a history of multiple comorbidities, including COPD, peripheral neuropathy, who came to the emergency department because of some chest discomfort and left arm pain, which was evaluated. The patient was admitted to rule out any coronary artery disease. Ms. Meyers was admitted to the medical floor. Her troponins were trended 3 times, which were all negative. EKGs were also repeated, which did not show any acute changes. A stress test was done, which was negative. We ruled out that the pain was most likely noncardiac related. During her hospital course, the chest pain completely resolved. Ms. Meyers was also more concerned of her electrolyte abnormality, for which she has been evaluated during the hospital course in the past. I did point out to her that her ejection fraction on the previous echocardiogram was normal, and that she has been on chronic PPI as well as Lasix therapy, which I do not think she needs it at this time, and that those two medications could potentially alter her electrolytes and cause abnormalities, and that she needs to, for now, discontinue the usage, and discuss alternatives with her primary care doctor. This morning, Ms. Meyers remains stable. We think she is okay for discharge. Current vitals at the time of discharge, blood pressure is 109/53, pulse of 69, respirations 15, temperature is 98.5 degrees, the patient is saturating 96% on room air. She is being discharged in stable condition. All the discharge instructions were discussed with her, and she voiced understanding. TIME SPENT: Time spent for discharge was 38 minutes. cc: MD Gilson Quintana MD
[2019-08-21] MEDS ORDERED: VITAMIN D PO SCH (09:00)
== END 2019-08-19 10:54 | disposition home or self-care (01) ==
LOC: ED 07:25 → 3N 07:26 → INTOOBSV 07:26
PROVIDERS: ATTEND Internal Medicine